=== PATIENT | female | born 1960 | race Caucasian/White ===

== ENCOUNTER 2018-12-20 12:56 | Inpatient (IN) ==
[2018-12-20] MEDS ORDERED: Albuterol 2.5 MG/3 ML NEBULIZER IH PRN (13:20)
[2018-12-20] MEDS ORDERED: CeFAZolin Syr 2,000MG/20 ML 2,000 MG/20 ML SYRINGE IVPB ONE (13:20)
[2018-12-20] MEDS ORDERED: *HR* FentaNYL (PF) 100 MCG/2 ML VIAL IVP PRN (13:23)
[2018-12-20] MEDS ORDERED: diazePAM 5 MG TABLET PO ONE (13:23)
[2018-12-20] MEDS ORDERED: *HR* OxyCODONE Immed Rel 5 MG TABLET PO PRN (13:23)
[2018-12-20] MEDS ORDERED: Famotidine 20 MG/2 ML VIAL IVP ONE (13:23)
[2018-12-20] MEDS ORDERED: *HR* Meperidine 25 MG/ML SYRINGE IVP PRN (13:23)
[2018-12-20] MEDS ORDERED: *HR* HYDROmorphone (PF) 1 MG/ML SYRINGE IVP PRN (13:23)
[2018-12-20] MEDS ORDERED: Ondansetron ODT 4 MG TAB.RAPDIS SL ONE (13:23)
[2018-12-20] MEDS ORDERED: *HR* Promethazine 25 MG/ML VIAL IVP PRN (13:23)
[2018-12-20] MEDS ORDERED: *HR* Midazolam HCl 2 MG/2 ML VIAL IVP PRN (13:23)
[2018-12-20] MEDS ORDERED: Acetaminophen IV 500 MG/50 ML INFUS..BTL IVPB ONE ×2 (13:29→13:45)
[2018-12-20] MEDS ORDERED: Ringers Solution, Lactated 1,000 ML IVC SCH (13:30)
[2018-12-20] MEDS ORDERED: Lidocaine -MPF 2% 2 ML VIAL ONE (13:54)
[2018-12-20] MEDS ORDERED: *HR* Succinylcholine 200 MG/10 ML VIAL IVP ONE (13:54)
[2018-12-20] MEDS ORDERED: Lidocaine HCL 4 ML Topical Solution (Laryng-O-Jet Kit Sterile Pak) TP ONE (13:54)
[2018-12-20] MEDS ORDERED: *HR* Rocuronium Bromide 50 MG/5 ML VIAL ONE (13:54)
[2018-12-20] MEDS ORDERED: Ondansetron 4 MG/2 ML VIAL ONE (13:54)
[2018-12-20] MEDS ORDERED: *HR* Remifentanil 2 MG VIAL IVP ONE (13:59)
[2018-12-20] MEDS ORDERED: *HR* FentaNYL (PF) 100 MCG/2 ML VIAL ONE (14:39)
[2018-12-20] MEDS ORDERED: *HR* Propofol 200 MG/20 ML VIAL IVP ONE (14:43)
[2018-12-20] MEDS ORDERED: *HR* Midazolam HCl 2 MG/2 ML VIAL ONE (14:44)
[2018-12-20] MEDS ORDERED: Nitroglycerin 0 MG/0 ML INFUS..BTL IVC ONE (15:35)
[2018-12-20] MEDS ORDERED: Neostigmine Methylsulfate 3 MG/3 ML SYRINGE ONE (16:45)
[2018-12-20] MEDS ORDERED: EPHEDrine 50 MG/ML VIAL ONE (16:52)
[2018-12-20] MEDS ORDERED: *HR* HYDROMORPHONE 2 MG/ML VIAL ONE (16:57)
[2018-12-20] MEDS ORDERED: *HR* Labetalol 20 MG/4 ML SYRINGE IVP ONE (17:04)
[2018-12-20] MEDS ORDERED: Ketorolac 15 MG/ML VIAL IVP PRN (18:22)
[2018-12-20] MEDS ORDERED: Ondansetron 4 MG/2 ML VIAL IVP PRN (18:22)
[2018-12-20] MEDS: 0.9 % Sodium Chloride 1,000 ML IVC SCH (20:09)
[2018-12-21] MEDS: 0.9 % Sodium Chloride 1,000 ML IVC SCH (09:12)
[2018-12-21] MEDS ORDERED: NON-FORMULARY MEDICATION 1 EACH EACH (Amlodipine Besylate/Benazepril [Amlodipine-Benazepri PO SCH (10:10)
[2018-12-21] MEDS ORDERED: (Dextroamphetamine/Amphetamine [Dextroamp-Amphetamin PO SCH (10:10)
[2018-12-21 11:06] VITALS: BP 142/70
[2018-12-21] MEDS ORDERED: Lisinopril 20 MG TABLET PO SCH (11:30)
[2018-12-21] MEDS ORDERED: amLODIPine 5 MG TABLET PO SCH (11:30)
== END 2018-12-21 12:00 | disposition home or self-care (01) | DRG 615 ==
LOC: SAMDAY 12:56 → 3ANU 18:12
PROVIDERS: ADMIT Surgery; ATTEND Surgery

== ENCOUNTER 2021-04-28 21:39 | Observation (INO) ==
[2021-04-28 22:43] LABS: Basophils % 0.3 %; Eosinophils # 0.1 K/mcL (0.0-0.6); Eosinophils % 1.1 %; Hematocrit 36.2 % (35.3-44.9); Hemoglobin 12.3 g/dL (11.5-15.4); Immature Granulocytes % 0.4 % (0-4); Lymphocytes # 3.1 K/mcL (0.6-4.6); Lymphocytes % 27.8 %; Mean Corpuscular Hemoglobin 29.3 pg (28.0-33.3); Mean Corpuscular Volume 86.2 fL (83.0-100.0); Mean Platelet Volume 10.7 fL (9.4-12.4); Monocytes # 0.8 K/mcL (0.0-1.3); Monocytes % 7.4 %; Neutrophils # 7.1 K/mcL (1.6-8.9); Platelet Count 325 K/mcL (140-400); Red Cell Distribution Width 13.5 % (11.5-14.5); White Blood Count 11.3 K/mcL (4.3-11.1)
[2021-04-28 22:54] LABS: INR 1.1; Prothrombin Time 12.7 Seconds (9.4-12.1)
[2021-04-28 22:56] LABS: Activated Partial Thrombo Time 33.5 Seconds (26.0-36.0)
[2021-04-28 23:06] LABS: Alanine Aminotransferase 13 Units/L (7-52); Albumin 3.8 g/dL (3.5-5.7); Albumin/Globulin Ratio 1.4 (1.1-2.2); Alkaline Phosphatase 63 Units/L (34-104); Aspartate Amino Transferase 21 Units/L (13-39); BUN/Creatinine Ratio 8 (6-26); Bilirubin,Indirect 0.3 mg/dL (0.0-1.0); Bilirubin,Total 0.3 mg/dL (0.3-1.0); Blood Urea Nitrogen 12 mg/dL (8-23); Calcium 7.9 mg/dL (8.6-10.3); Carbon Dioxide 24 mEq/L (23-29); Chloride 105 mEq/L (98-107); Ethanol < 10 mg/dL (Less than 10); Globulin 2.8 g/dL (2.4-3.5); Glucose 73 mg/dL (70-105); Magnesium 0.8 mg/dL (1.6-2.6); Osmolality,Calculated 286 (280-300); Potassium 2.9 mEq/L (3.5-5.1); Sodium 139 mEq/L (136-145); Total Protein 6.6 g/dL (6.4-8.9); eGFR For African Americans 44 (> 60); eGFR For Non-African Americans 36 (> 60)
[2021-04-28 23:41] LABS: Bilirubin,Urine Negative (Negative); Blood,Urine Negative (Negative); Clarity,Urine Turbid (Clear); Color,Urine Yellow (Yellow); Glucose,Urine (UA) Normal (Normal); Ketones,Urine Negative (Negative); Leukocyte Esterase,Urine Moderate (Negative); Mucus,Urine Few per lpf (None-Few); Nitrite,Urine Negative (Negative); Protein,Urine 50 mg/dL (Neg-Trace); RBC,Urine 0-3 per hpf (0-3); Specific Gravity,Urine > 1.030 (1.010-1.025); Squamous Epithelial Cell,Urine Moderate per hpf (None-Few); Urobilinogen,Urine Normal (Normal); WBC,Urine 15-30 per hpf (0-3)
[2021-04-28 23:45] LABS: Amphetamine Screen,Urine Positive ng/mL (Cutoff=1000); Barbiturate Screen,Urine Negative ng/mL (Cutoff=200); Benzodiazepines Screen,Urine Negative ng/mL (Cutoff=200); Cannabinoid Screen,Urine Negative ng/mL (Cutoff = 50); Cocaine Screen,Urine Negative ng/mL (Cutoff= 300); Opiate Screen,Urine Negative ng/mL (Cutoff=300); Phencyclidine Screen,Urine Negative ng/mL (Cutoff=25)
[2021-04-28] MEDS ORDERED: Aspirin 325 MG TABLET PO ONE (23:57)
[2021-04-29] MEDS ORDERED: Magnesium Oxide 400 MG TABLET PO ONE (01:09)
[2021-04-29] MEDS ORDERED: Melatonin 3 MG TABLET PO PRN (02:07)
[2021-04-29] MEDS ORDERED: Naloxone 0.4 MG/ML INJ IVP PRN (02:07)
[2021-04-29] MEDS ORDERED: Ondansetron 4 MG/2 ML VIAL IVP PRN (02:07)
[2021-04-29] MEDS ORDERED: Acetaminophen 325 MG TABLET PO PRN (02:07)
[2021-04-29 05:32] LABS: Basophils % 0.4 %; Eosinophils # 0.1 K/mcL (0.0-0.6); Eosinophils % 1.4 %; Hematocrit 34.6 % (35.3-44.9); Hemoglobin 11.3 g/dL (11.5-15.4); Immature Granulocytes % 0.2 % (0-4); Lymphocytes # 3.4 K/mcL (0.6-4.6); Lymphocytes % 39.6 %; Mean Corpuscular HGB Conc 32.7 g/dL (31.6-35.5); Mean Corpuscular Hemoglobin 28.8 pg (28.0-33.3); Mean Corpuscular Volume 88.3 fL (83.0-100.0); Mean Platelet Volume 10.7 fL (9.4-12.4); Monocytes # 0.6 K/mcL (0.0-1.3); Monocytes % 7.5 %; Neutrophils # 4.3 K/mcL (1.6-8.9); Platelet Count 285 K/mcL (140-400); Red Blood Count 3.92 M/mcL (3.82-4.97); Red Cell Distribution Width 13.6 % (11.5-14.5); Segmented Neutrophils % 50.9 %; White Blood Count 8.5 K/mcL (4.3-11.1)
[2021-04-29 05:53] LABS: Albumin 3.5 g/dL (3.5-5.7); Albumin/Globulin Ratio 1.4 (1.1-2.2); Bilirubin,Total 0.3 mg/dL (0.3-1.0); Calcium 7.4 mg/dL (8.6-10.3); Globulin 2.5 g/dL (2.4-3.5); Magnesium 0.8 mg/dL (1.6-2.6); Phosphorous 3.2 mg/dL (2.7-4.5); Potassium 3.2 mEq/L (3.5-5.1); Troponin I 0.08 ng/mL (< 0.04)
[2021-04-29] MEDS ORDERED: Magnesium Sulfate 1 GM/102 ML PIGGYBACK IVPB ONE (05:56)
[2021-04-29] MEDS ORDERED: Perflutren Lipid Microsphere 1.3 ML in 0.9 % Sodium Chloride 8.7 ML IVP PRN (06:52)
[2021-04-29] MEDS: Famotidine 20 MG TABLET PO SCH (10:30)
[2021-04-29] MEDS ORDERED: *HR* Heparin 5,000 UNIT/ML VIAL IVP ONE (11:23)
[2021-04-29] MEDS ORDERED: *HR* Heparin 5,000 UNIT/ML VIAL IVP PRN ×2 (11:23)
[2021-04-29] MEDS: Heparin 25,000UNIT/250ML 1/2NS 25,000 UNIT/250 ML IV.SOLN IVC SCH (12:16)
[2021-04-29] MEDS ORDERED: *HR* Heparin 5,000 UNIT/ML VIAL SQ SCH (18:00)
[2021-04-29 18:23] LABS: BUN/Creatinine Ratio 10 (6-26); Blood Urea Nitrogen 11 mg/dL (8-23); Calcium 7.8 mg/dL (8.6-10.3); Carbon Dioxide 23 mEq/L (23-29); Chloride 106 mEq/L (98-107); Glucose 159 mg/dL (70-105); Magnesium 2.7 mg/dL (1.6-2.6); Osmolality,Calculated 285 (280-300); Potassium 3.6 mEq/L (3.5-5.1); Sodium 136 mEq/L (136-145); eGFR For African Americans > 60 (> 60); eGFR For Non-African Americans 51 (> 60)
[2021-04-30 01:04] LABS: Basophils % 0.4 %; Eosinophils # 0.2 K/mcL (0.0-0.6); Eosinophils % 2.1 %; Hematocrit 31.7 % (35.3-44.9); Hemoglobin 10.4 g/dL (11.5-15.4); Immature Granulocytes % 0.3 % (0-4); Lymphocytes # 3.3 K/mcL (0.6-4.6); Lymphocytes % 43.3 %; Mean Corpuscular HGB Conc 32.8 g/dL (31.6-35.5); Mean Corpuscular Hemoglobin 29.1 pg (28.0-33.3); Mean Corpuscular Volume 88.5 fL (83.0-100.0); Monocytes # 0.5 K/mcL (0.0-1.3); Monocytes % 6.7 %; Neutrophils # 3.6 K/mcL (1.6-8.9); Platelet Count 277 K/mcL (140-400); Red Blood Count 3.58 M/mcL (3.82-4.97); Red Cell Distribution Width 13.6 % (11.5-14.5); Segmented Neutrophils % 47.2 %; White Blood Count 7.7 K/mcL (4.3-11.1)
[2021-04-30 01:24] LABS: BUN/Creatinine Ratio 12 (6-26); Blood Urea Nitrogen 13 mg/dL (8-23); Calcium 7.8 mg/dL (8.6-10.3); Carbon Dioxide 21 mEq/L (23-29); Chloride 107 mEq/L (98-107); Glucose 117 mg/dL (70-105); Magnesium 2.2 mg/dL (1.6-2.6); Osmolality,Calculated 283 (280-300); Sodium 136 mEq/L (136-145); eGFR For African Americans > 60 (> 60); eGFR For Non-African Americans 52 (> 60)
[2021-04-30] MEDS: Cyanocobalamin (B-12) 1,000 MCG TABLET PO SCH (08:31)
[2021-04-30] MEDS: Famotidine 20 MG TABLET PO SCH ×2 (08:31→20:15)
[2021-04-30] MEDS: Nicotine 14 MG PATCH.TD24 TD SCH (08:31)
[2021-04-30] MEDS: Aspirin 81 MG TAB.CHEW PO SCH (08:31)
[2021-04-30] MEDS: PARoxetine 20 MG TABLET PO SCH (11:35)
[2021-04-30 11:53] LABS: Hematocrit 36.6 % (35.3-44.9); Hemoglobin 11.8 g/dL (11.5-15.4)
[2021-04-30] MEDS ORDERED: Heparin 1,000 UNITS/500 mL 500 ML ONE (14:24)
[2021-04-30] MEDS ORDERED: ISOVUE-370 200 ML INFUS..BTL ONE (14:24)
[2021-04-30] MEDS ORDERED: *HR* Heparin 10,000 UNIT/10 ML VIAL ONE (14:24)
[2021-04-30] MEDS ORDERED: 0.9 % Sodium Chloride 2,000 ML ONE (14:25)
[2021-04-30] MEDS ORDERED: Nitroglycerin 1,000 MCG/5 ML VIAL IV ONE (14:25)
[2021-04-30] MEDS ORDERED: *HR* Midazolam HCl 2 MG/2 ML VIAL ONE (14:40)
[2021-04-30] MEDS ORDERED: *HR* FentaNYL (PF) 100 MCG/2 ML VIAL ONE (14:40)
[2021-04-30] MEDS: Heparin 25,000UNIT/250ML 1/2NS 25,000 UNIT/250 ML IV.SOLN IVC SCH (21:06)
[2021-05-01 02:15] LABS: Basophils % 0.4 %; Eosinophils # 0.1 K/mcL (0.0-0.6); Eosinophils % 1.7 %; Hematocrit 33.1 % (35.3-44.9); Hemoglobin 10.8 g/dL (11.5-15.4); Immature Granulocytes % 0.1 % (0-4); Lymphocytes # 2.8 K/mcL (0.6-4.6); Lymphocytes % 35.6 %; Mean Corpuscular HGB Conc 32.6 g/dL (31.6-35.5); Mean Corpuscular Hemoglobin 29.6 pg (28.0-33.3); Mean Corpuscular Volume 90.7 fL (83.0-100.0); Mean Platelet Volume 11.3 fL (9.4-12.4); Monocytes # 0.7 K/mcL (0.0-1.3); Monocytes % 8.4 %; Neutrophils # 4.2 K/mcL (1.6-8.9); Platelet Count 287 K/mcL (140-400); Red Blood Count 3.65 M/mcL (3.82-4.97); Red Cell Distribution Width 13.8 % (11.5-14.5); Segmented Neutrophils % 53.8 %; White Blood Count 7.8 K/mcL (4.3-11.1)
[2021-05-01 02:33] LABS: BUN/Creatinine Ratio 12 (6-26); Blood Urea Nitrogen 13 mg/dL (8-23); Calcium 8.3 mg/dL (8.6-10.3); Carbon Dioxide 20 mEq/L (23-29); Chloride 109 mEq/L (98-107); Glucose 84 mg/dL (70-105); Magnesium 1.9 mg/dL (1.6-2.6); Osmolality,Calculated 279 (280-300); Potassium 4.6 mEq/L (3.5-5.1); Sodium 135 mEq/L (136-145); eGFR For African Americans > 60 (> 60); eGFR For Non-African Americans 53 (> 60)
[2021-05-01 06:55] VITALS: BP 137/76; PULSE 55; TEMP 98.6; O2SAT 97
[2021-05-01] MEDS: Nicotine 14 MG PATCH.TD24 TD SCH (07:26)
[2021-05-01] MEDS: Famotidine 20 MG TABLET PO SCH (07:27)
[2021-05-01] MEDS: Aspirin 81 MG TAB.CHEW PO SCH (07:27)
[2021-05-01] MEDS: PARoxetine 20 MG TABLET PO SCH (07:28)
[2021-05-01] MEDS: Cyanocobalamin (B-12) 1,000 MCG TABLET PO SCH (07:48)
[2021-05-01] MEDS ORDERED: Metoprolol XL (24 HR) Succ 25 MG TAB.ER.24H PO SCH (09:00)
== END 2021-05-01 09:57 | disposition home or self-care (01) ==
LOC: EMEROOARM 21:39 → 2ANU 21:39 → SUATTDRO 04-29 01:04 → 2ANU 04-29 01:50
PROVIDERS: ADMIT Internal Medicine; ATTEND Pharmacist

== ENCOUNTER 2021-12-01 06:26 | Inpatient (IN) ==
[2021-12-01] MEDS ORDERED: *HR* Vasopressin 20 UNIT/ML VIAL ONE (06:40)
[2021-12-01] MEDS ORDERED: NiCARdipine 2.5 MG/10 ML Syringe IVPB ONE (06:40)
[2021-12-01] MEDS ORDERED: Ringers Solution, Lactated 1,000 ML IVC SCH (06:45)
[2021-12-01] MEDS ORDERED: Ondansetron 4 MG/2 ML VIAL ONE (06:49)
[2021-12-01] MEDS ORDERED: *HR* FentaNYL (PF) 100 MCG/2 ML VIAL ONE (06:49)
[2021-12-01] MEDS ORDERED: *HR* Rocuronium Bromide 50 MG/5 ML VIAL ONE (06:49)
[2021-12-01] MEDS ORDERED: Lidocaine -MPF 2% 2 ML VIAL ONE (06:49)
[2021-12-01] MEDS ORDERED: Sugammadex Sodium 200 MG/2 ML VIAL IV ONE (06:49)
[2021-12-01] MEDS ORDERED: Heparin 1,000 UNITS/500 mL 0 ML ONE (06:50)
[2021-12-01] MEDS ORDERED: *HR* Heparin 5,000 UNIT/ML VIAL ONE (06:50)
[2021-12-01] MEDS ORDERED: *HR* Propofol 200 MG/20 ML VIAL IVP ONE (06:50)
[2021-12-01] MEDS ORDERED: *HR* Remifentanil 2 MG VIAL IVP ONE (07:04)
[2021-12-01] MEDS ORDERED: *HR* Phenylephrine 10 MG/ML VIAL ONE (07:07)
[2021-12-01] MEDS ORDERED: Protamine Sulfate 50 MG/5 ML VIAL IVP ONE (07:17)
[2021-12-01] MEDS ORDERED: Heparin 1,000 UNITS/500 mL 1,000 ML ONE (07:17)
[2021-12-01] MEDS ORDERED: CeFAZolin Syr 2,000MG/20 ML 2,000 MG/20 ML SYRINGE IVPB ONE (07:21)
[2021-12-01] MEDS ORDERED: ceFAZolin 1,000 MG, Sodium Chloride IRRigation 1,000 ML IR ONE (07:45)
[2021-12-01] MEDS ORDERED: EPHEDrine sulfate 50 MG/10 ML VIAL IVP ONE (08:02)
[2021-12-01] MEDS ORDERED: *HR* HYDROmorphone PF 0.5 MG/0.5 ML SYRINGE IVP PRN (08:04)
[2021-12-01] MEDS ORDERED: Ondansetron 4 MG/2 ML VIAL IVP PRN ×2 (08:04→12:17)
[2021-12-01] MEDS ORDERED: Promethazine 6.25 MG in Water for inj. (sterile) 20 ML IVPB PRN (08:04)
[2021-12-01] MEDS ORDERED: *HR* OxyCODONE Immed Rel 5 MG TABLET PO PRN (08:04)
[2021-12-01] MEDS ORDERED: Acetaminophen IV 1,000 MG/100 ML BAG IVPB ONE (08:44)
[2021-12-01] MEDS ORDERED: *HR* Labetalol 20 MG/4 ML SYRINGE IVP PRN (12:17)
[2021-12-01] MEDS ORDERED: *HR* HYDROcodone/Acet 5/325 mg TABLET PO PRN (12:17)
[2021-12-01] MEDS ORDERED: Naloxone 0.4 MG/ML INJ IVP PRN (12:17)
[2021-12-01] MEDS: Acetaminophen 325 MG TABLET PO PRN (12:42)
[2021-12-01] MEDS: 0.9 % Sodium Chloride 500 ML IVC PRN ×3 (14:14→22:52)
[2021-12-01] MEDS: Nicotine 21 MG PATCH.TD24 TD SCH (15:12)
[2021-12-01] MEDS: Famotidine 20 MG TABLET PO SCH ×2 (16:04→21:04)
[2021-12-01] MEDS: Magnesium Oxide 400 MG TABLET PO SCH (16:13)
[2021-12-01] MEDS: CeFAZolin 2 GM/120 ML BAG IVPB SCH ×2 (16:36→23:59)
[2021-12-01] MEDS ORDERED: Ketorolac 30 MG/ML VIAL IVP ONE (17:58)
[2021-12-01] MEDS ORDERED: Famotidine 20 MG TABLET PO SCH (21:00)
[2021-12-01] MEDS: Ketorolac 30 MG/ML VIAL IVP SCH ×2 (22:41→22:42)
[2021-12-02] MEDS: Acetaminophen 325 MG TABLET PO PRN ×2 (00:42→07:50)
[2021-12-02 03:05] LABS: Basophils % 0.2 %; Eosinophils % 0.1 %; Hematocrit 32.4 % (35.3-44.9); Immature Granulocytes % 0.4 % (0-4); Lymphocytes # 2.2 K/mcL (0.6-4.6); Lymphocytes % 20.3 %; Mean Corpuscular HGB Conc 32.4 g/dL (31.6-35.5); Mean Corpuscular Hemoglobin 29.2 pg (28.0-33.3); Mean Corpuscular Volume 90.3 fL (83.0-100.0); Mean Platelet Volume 10.7 fL (9.4-12.4); Monocytes # 0.8 K/mcL (0.0-1.3); Monocytes % 7.1 %; Neutrophils # 7.8 K/mcL (1.6-8.9); Platelet Count 212 K/mcL (140-400); Red Blood Count 3.59 M/mcL (3.82-4.97); Red Cell Distribution Width 13.5 % (11.5-14.5); Segmented Neutrophils % 71.9 %; White Blood Count 10.8 K/mcL (4.3-11.1)
[2021-12-02 03:11] LABS: Hemoglobin 10.5 g/dL (11.5-15.4)
[2021-12-02 03:30] LABS: Calcium 7.5 mg/dL (8.6-10.3); Potassium 4.2 mEq/L (3.5-5.1)
[2021-12-02] MEDS: Ketorolac 30 MG/ML VIAL IVP SCH ×2 (05:44→12:04)
[2021-12-02] MEDS: Magnesium Oxide 400 MG TABLET PO SCH (07:50)
[2021-12-02] MEDS: Famotidine 20 MG TABLET PO SCH (07:50)
[2021-12-02] MEDS: Nicotine 21 MG PATCH.TD24 TD SCH (07:52)
[2021-12-02] MEDS: CeFAZolin 2 GM/120 ML BAG IVPB SCH (07:59)
[2021-12-02] MEDS ORDERED: Aspirin 81 MG TAB.CHEW PO SCH (09:00)
[2021-12-02] MEDS ORDERED: Magnesium Oxide 400 MG TABLET PO SCH (09:00)
[2021-12-02] MEDS ORDERED: PARoxetine 20 MG TABLET PO SCH (09:00)
[2021-12-02] MEDS ORDERED: Metoprolol XL (24 HR) Succ 25 MG TAB.ER.24H PO SCH (09:00)
[2021-12-02 11:05] VITALS: BP 122/73; TEMP 97.7; O2SAT 100
[2021-12-02 15:38] VITALS: PULSE 44
== END 2021-12-02 18:15 | disposition home or self-care (01) | DRG 39 ==
LOC: SAMDAY 06:26 → 2NNU 12:21
PROVIDERS: ADMIT Surgery Vascular Surgery; ATTEND Surgery Vascular Surgery